=== PATIENT | male | born 1995 | race Caucasian/White ===

== ENCOUNTER 2021-06-18 13:10 | Emergency (ER) | payer MEDICAID, OTHER ==
--- NOTE | 2021-06-18 13:49 | EDM.PDOC ---
ED HPI GENERAL MEDICAL PROBLEM - General Chief Complaint: Bite:Animal, Insect Stated Complaint: STUNG BY BEE Time Seen by Provider: 06/18/21 13:23 Source of Information: Reports: Patient History Limitations: Reports: No Limitations - History of Present Illness INITIAL COMMENTS - FREE TEXT/NARRATIVE: Pt. presents to ER with complaints of wasp bite to R shoulder area. Pt. states that this happened about an hour before presenting to ER. Denies any throat tightness, chest tightness, wheezing, or trouble breathing. No nausea or vomiting. No chest pain or lightheadedness. He denies any rash, pruritus, or skin redness. Pt. states that this is the first time he has ever been stung by a wasp. He states that he took benadryl 50mg PO prior to arrival at ER. Onset: Today Onset Date: 06/18/21 Right Upper Back Pain Score (Numeric/FACES): 3 - Related Data Allergies Allergy/AdvReac Type Severity Reaction Status Date / Time acetaminophen [From Tylenol] Allergy Hives Verified 06/18/21 13:14 naproxen [From Aleve] Allergy Hives Verified 06/18/21 13:14 Home Meds: Home Meds . [Unable to Verify Home Med List] 06/18/21 [History] Albuterol Sulfate [Proair Hfa] 8.5 gm IH ASDIRECTED PRN 06/18/21 [History] EPINEPHrine [Epipen] 0.3 mg IM ASDIRECTED PRN 06/18/21 [History] Past Medical History Respiratory History: Reports: Asthma Gastrointestinal History: Reports: Celiac Disease, Gastritis, Inflammatory Bowel Disease, Other (See Below) Other Gastrointestinal History: Crohns Social & Family History - Tobacco Use Tobacco Use Status *Q: Current Every Day Tobacco User Years of Tobacco use: 12 Packs/Tins Daily: 1 ED ROS GENERAL - Review of Systems Review Of Systems: See Below Constitutional: Reports: No Symptoms HEENT: Reports: No Symptoms Respiratory: Reports: No Symptoms Cardiovascular: Reports: No Symptoms Endocrine: Reports: No Symptoms GI/Abdominal: Reports: No Symptoms : Reports: No Symptoms Musculoskeletal: Reports: No Symptoms Skin: Reports: No Symptoms Neurological: Reports: No Symptoms Psychiatric: Reports: No Symptoms Hematologic/Lymphatic: Reports: No Symptoms Immunologic: Reports: No Symptoms ED EXAM, ANIMAL BITE - Physical Exam Exam: See Below Exam Limited By: No Limitations General Appearance: Alert, WD/WN, No Apparent Distress Head: Atraumatic, Normocephalic Neck: Normal Inspection, Supple, Non-Tender, Full Range of Motion Respiratory/Chest: No Respiratory Distress, Lungs Clear, Normal Breath Sounds, No Accessory Muscle Use, Chest Non-Tender Cardiovascular: Normal Peripheral Pulses, Regular Rate, Rhythm, No Edema, No JVD GI/Abdominal: Soft, Non-Tender, No Distention, No Mass (Male) Exam: Deferred Rectal (Males) Exam: Deferred Back Exam: Other (Evidence of superficial insect bite to R shoulder. ) Extremities: Normal Inspection, Normal Range of Motion, Non-Tender, No Pedal Edema, Normal Capillary Refill Neurological: Alert, Oriented, CN II-XII Intact, Normal Cognition, Normal Gait, Normal Reflexes, No Motor/Sensory Deficits Psychiatric: Normal Affect, Normal Mood Skin Exam: Normal Color, Warm/Dry Course - Vital Signs Last Recorded V/S: Last Vital Signs Temp 36.9 C 06/18/21 13:14 Pulse 89 06/18/21 13:14 Resp 20 06/18/21 13:14 BP 141/85 H 06/18/21 13:14 Pulse Ox 98 06/18/21 13:14 Departure - Departure Time of Disposition: 14:00 Disposition: Home, Self-Care 01 Clinical Impression: Insect bite - Discharge Information Instructions: Bee, Wasp, or Hornet Sting, Adult Referrals: PCP,Not In Area [Primary Care Provider] - Forms: ED Department Discharge Additional Instructions: Benadryl 25mg 2 tabs every 6 hours for itching/discomfort You can also use to ibuprofen as needed for local discomfort Return to ER if you notice and trouble breathing/throat tightness that doesn't go away with benadryl. Sepsis Event Note (ED) - Focused Exam Vital Signs: Vital Signs Temp Pulse Resp BP Pulse Ox 06/18/21 13:14 36.9 C 89 20 141/85 H 98 - Problem List Review Problem List Initiated/Reviewed/Updated: Yes - Assessment/Plan Plan: Benadryl 25mg 2 tabs every 6 hours for itching/discomfort You can also use to ibuprofen as needed for local discomfort Return to ER if you notice and trouble breathing/throat tightness that doesn't go away with benadryl.
== END 2021-06-18 13:39 | disposition home or self-care (01) ==
LOC: VM.ED 13:10
DX: S40.261A Insect bite (nonvenomous) of right shoulder, initial encounter (principal); J45.909 Unspecified asthma, uncomplicated; Z88.5 Allergy status to narcotic agent; Z88.8 Allergy status to other drugs, medicaments and biological substances; Z79.899 Other long term (current) drug therapy; Z72.0 Tobacco use; W57.XXXA Bitten or stung by nonvenomous insect and other nonvenomous arthropods, initial encounter
CPT/HCPCS: 99282; 99283